=== PATIENT | male | born 1970 | race Caucasian/White ===

== ENCOUNTER 2017-04-14 11:11 | Emergency (ER) | payer MEDICAID ==
[~2017-04-14] VITALS: Ht 177.8 cm; Wt 120.7 kg
[2017-04-14 11:13] VITALS: BP 160/98
== END 2017-04-14 12:17 | disposition home or self-care (01) ==
LOC: ED 12:00
DX: H60.501 Unspecified acute noninfective otitis externa, right ear (principal)
CPT/HCPCS: 99283

== ENCOUNTER 2017-08-28 09:43 | Emergency (ER) | payer MEDICAID ==
[~2017-08-28] VITALS: Ht 175.3 cm; Wt 119.0 kg
[2017-08-28 09:46] VITALS: BP 148/90
[2017-08-28] MEDS ORDERED: KETOROLAC 30 MG/1 ML IM ONE (10:30)
[2017-08-28] MEDS ORDERED: KETOROLAC 30 MG/1 ML ONE (10:32)
== END 2017-08-28 10:47 | disposition home or self-care (01) ==
LOC: ED 10:41
DX: M25.562 Pain in left knee (principal); M79.672 Pain in left foot; F17.200 Nicotine dependence, unspecified, uncomplicated; E11.9 Type 2 diabetes mellitus without complications
CPT/HCPCS: 73564; 73630; 82962; 96372; 99284; J1885

== ENCOUNTER 2018-02-07 09:39 | Emergency (ER) | payer SELFPAY ==
[~2018-02-07] VITALS: Ht 177.8 cm; Wt 125.0 kg
[2018-02-07 12:20] VITALS: BP 134/72
== END 2018-02-07 12:25 | disposition home or self-care (01) ==
LOC: ED 11:30
DX: R07.89 Other chest pain (principal); M54.6 Pain in thoracic spine
CPT/HCPCS: 71046; 71250; 99284